=== PATIENT | female | born 1965 | race Caucasian/White ===

== ENCOUNTER → 2018-01-28 | Outpatient (CLI) | payer OTHER ==
[~2018-01-28] VITALS: Ht 161.3 cm; Wt 53.0 kg
[~2018-01-28] MED LIST: ATARAX,VISTARIL25 MG PO; CARDIZEM CD,CA240 MG PO; bp med
[2018-01-28 07:50] VITALS: BP 169/100
== END | disposition home or self-care (01) ==
LOC: IVINF 07:00
DX: E87.1 Hypo-osmolality and hyponatremia (principal); D64.9 Anemia, unspecified; M06.9 Rheumatoid arthritis, unspecified
CPT/HCPCS: 80400; 82024 90; 96374; J0834